=== PATIENT | male | born 1930 ===

== ENCOUNTER 2018-08-17 19:48 | Inpatient (IN) | payer MEDICARE, OTHER | END 2018-08-27 00:28 | disposition E | LOC: TELE 08-18 03:09 → TELE-WESTW 08-23 18:13 → DOU IN ICU 08-24 04:17 → TELE-CENTR 08-26 22:42 → ICU WEST 08-19 17:14 → ER 19:48 | PROC: 5A1935Z Respiratory Ventilation, Less than 24 Consecutive Hours (ICD-10-PCS; principal; 2018-08-18 18:05) | PROC: 0BH17EZ Insertion of Endotracheal Airway into Trachea, Via Natural or Artificial Opening (ICD-10-PCS; 2018-08-18 18:05) | PROC: 0TBC8ZZ Excision of Bladder Neck, Via Natural or Artificial Opening Endoscopic (ICD-10-PCS; 2018-08-18 18:05) | DX: S01.01XA Laceration without foreign body of scalp, initial encounter (principal); J96.00 Acute respiratory failure, unspecified whether with hypoxia or hypercapnia; E44.1 Mild protein-calorie malnutrition; K92.2 Gastrointestinal hemorrhage, unspecified; N36.5 Urethral false passage; D64.9 Anemia, unspecified; N32.0 Bladder-neck obstruction; I10 Essential (primary) hypertension; E78.5 Hyperlipidemia, unspecified; K29.80 Duodenitis without bleeding; K20.9 Esophagitis, unspecified; K29.70 Gastritis, unspecified, without bleeding; N40.0 Benign prostatic hyperplasia without lower urinary tract symptoms; W18.30XA Fall on same level, unspecified, initial encounter; Y92.009 Unspecified place in unspecified non-institutional (private) residence as the place of occurrence of the external cause; Z85.46 Personal history of malignant neoplasm of prostate ==